=== PATIENT | female | born 1995 | race African-American/Black ===

== ENCOUNTER 2017-07-08 20:29 | Emergency (ER) | payer OTHER ==
--- NOTE | 2017-07-08 21:36 | PDOC ---
Rapid Medical Evaluation Time Seen by Provider: 07/08/17 21:34 Medical Evaluation: Allergies Allergy/AdvReac Type Severity Reaction Status Date / Time shellfish derived Allergy Verified 04/09/16 20:11 I have performed a brief in-person evaluation of this patient. The patient presents with a chief complaint of: n/v/d today. mom has same symptoms Pertinent physical exam findings: none I have ordered the following: labs, UA/hcg The patient will proceed to the ED for further evaluation.
[2017-07-08 21:38] VITALS: BP 108/46; PULSE 108; TEMP 98; BMI 24.5
[2017-07-08 21:59] LABS: BASO % 0.3 % (0-2.0); EOS % 3.2 % (0-4.5); HEMATOCRIT 40.4 % (32.4-45.2); HEMOGLOBIN 12.8 GM/dL (10.7-15.3); LYMPH % 7.1 % (8-40); MCH 21.4 pg (25.7-33.7); MCHC 31.7 g/dl (32.0-36.0); MEAN CELL VOLUME 67.5 fl (80-96); MONO % 6.7 % (3.8-10.2); NEUT % 82.7 % (42.8-82.8); PLATELET COUNT 330 K/MM3 (134-434); RBC 5.99 M/mm3 (3.60-5.2); RDW 14.6 % (11.6-15.6); WHITE BLOOD COUNT 11.9 K/mm3 (4.0-10.0)
[2017-07-08 22:26] LABS: ANION GAP 6 (8-16); BILIRUBIN,TOTAL 0.5 mg/dL (0.2-1.0); BLOOD UREA NITROGEN 13 mg/dL (7-18); CALCIUM 8.8 mg/dL (8.5-10.1); CHLORIDE 109 mmol/L (98-107); CO2 24 mmol/L (21-32); CREATININE 0.7 mg/dL (0.55-1.02); GLUCOSE,RANDOM 98 mg/dL (74-106); LIPASE 97 U/L (73-393); POTASSIUM 3.7 mmol/L (3.5-5.1); SGOT/AST 23 U/L (15-37); SGPT/ALT 19 U/L (12-78); SODIUM 139 mmol/L (136-145); TOT PROT 7.9 g/dl (6.4-8.2)
[2017-07-08 22:27] LABS: ALK PHOS 76 U/L (45-117)
[2017-07-08] MEDS ORDERED: ONDANSETRON *ODT* 4 MG TABLET SL ONE (22:44)
[2017-07-08] MEDS ORDERED: ONDANSETRON *ODT* 4 MG TABLET ONE (23:22)
[2017-07-08 23:43] LABS: HCG,QUALITATIVE URINE NEGATIVE
[2017-07-08 23:45] LABS: URINE APPEARANCE SLCLOUDY; URINE BILIRUBIN NEGATIVE (<2.0 mg/dL); URINE BLOOD 3+ (NEGATIVE); URINE COLOR YELLOW; URINE GLUCOSE (UA) NEGATIVE (NEGATIVE); URINE KETONE TRACE (NEGATIVE); URINE LEUK ESTERASE TRACE (NEGATIVE); URINE NITRITE NEGATIVE (NEGATIVE); URINE PROTEIN 1+ (NEGATIVE); URINE UROBILINOGEN NEGATIVE mg/dL (0.2-1.0)
[2017-07-08 23:46] LABS: EPI CELLS RARE /HPF (FEW)
--- NOTE | 2017-07-09 00:01 | PDOC ---
History of Present Illness <Lisandra Reynolds Milka - Last Filed: 07/09/17 00:11> - General History Source: Patient Exam Limitations: No Limitations - History of Present Illness Initial Comments: 07/09/17 00:32 The patient is a 22 year old female, with no significant past medical history, who presents to the emergency department with, one day of epigastric abdominal discomfort, nausea with vomiting and diarrhea. The patient states her symptoms began this morning after breakfast and she reports two episodes of emesis (non bloody, non bilious) and 3 episodes of diarrhea (denies melena or hematochezia) . The patient states her mother is sick at home with the exact same symptoms. She denies recent fevers, chills, headache or dizziness. She denies recent dysuria, frequency, urgency or hematuria. She denies recent chest pain or shortness of breath. Allergies: shellfish derived <Ryland España - Last Filed: 07/09/17 00:36> - General Chief Complaint: Vomiting/Diarrhea Stated Complaint: PAIN/VOMITING Time Seen by Provider: 07/08/17 21:34 Past History - Past Medical History COPD: No - Immunization History Immunization Up to Date: Yes - Suicide/Smoking/Psychosocial Hx Smoking History: Never smoked Have you smoked in the past 12 months: No Hx Alcohol Use: No Drug/Substance Use Hx: No Substance Use Type: None <Tavon Reynoldszoya Jarquin - Last Filed: 07/09/17 00:11> <Ryland España - Last Filed: 07/09/17 00:36> - Past Medical History Allergies/Adverse Reactions: Allergies Allergy/AdvReac Type Severity Reaction Status Date / Time shellfish derived Allergy Verified 07/08/17 21:34 Home Medications: Ambulatory Orders Ondansetron [Zofran Odt -] 4 mg SL TID PRN #21 od.tablet 07/09/17 Review of Systems - Review of Systems Comments:: 07/09/17 00:34 CONSTITUTIONAL: Absent: fever, no chills, no fatigue EYES: Absent: visual changes ENT: Absent: ear pain, no sore throat CARDIOVASCULAR: Absent: chest pain, no palpitations RESPIRATORY: Absent: cough, no SOB GI: Present: +Epigastric abdominal discomfort. +Nausea. +Vomiting. +Diarrhea. Absent: no constipation, GENITOURINARY: Absent: dysuria, no frequency, no hematuria MUSKULOSKELETAL: Absent: back pain, no arthralgia, no myalgia SKIN: Absent: rash NEURO: Absent: headache <Ryland España - Last Filed: 07/09/17 00:36> *Physical Exam - Vital Signs Last Vital Signs Temp Pulse Resp BP Pulse Ox 98 F 108 H 20 108/46 100 07/08/17 21:37 07/08/17 21:37 07/08/17 21:37 07/08/17 21:37 07/08/17 21:37 <Lisandra Reynolds - Last Filed: 07/09/17 00:11> - Vital Signs Last Vital Signs Temp Pulse Resp BP Pulse Ox 98 F 108 H 20 108/46 100 07/08/17 21:37 07/08/17 21:37 07/08/17 21:37 07/08/17 21:37 07/08/17 21:37 - Physical Exam Comments: 07/09/17 00:35 GENERAL: +Mild cognitive deficits. Well-appearing, well-nourished. No apparent distress. HEENT: Normocephalic, atraumatic. PERRL, EOM intact. CARDIOVASCULAR: Normal S1, S2. Regular rate and rhythm. PULMONARY: Clear to auscultation bilaterally. ABDOMEN: +Epigastric tenderness. No rebound or guarding. Soft, non-distended. EXTREMITIES: Normal ROM in all four extremities. No gross deformities. SKIN: Warm, dry. No rash NEUROLOGICAL: No focal neurological deficits. <Ryland España - Last Filed: 07/09/17 00:36> ED Treatment Course - LABORATORY CBC & Chemistry Diagram: 07/08/17 21:46 07/08/17 21:46 - ADDITIONAL ORDERS Additional order review: Laboratory Results 07/08/17 07/08/17 07/08/17 23:20 23:20 21:46 Sodium 139 Potassium 3.7 Chloride 109 H Carbon Dioxide 24 Anion Gap 6 L BUN 13 Creatinine 0.7 Creat Clearance w eGFR > 60 Random Glucose 98 Calcium 8.8 Total Bilirubin 0.5 D AST 23 ALT 19 Alkaline Phosphatase 76 Total Protein 7.9 Albumin 4.0 Lipase 97 Serum , Qual Negative Urine Color Yellow Urine Appearance Slcloudy Urine pH 5.0 Ur Specific Gervais 1.035 Urine Protein 1+ H Urine Glucose (UA) Negative Urine Ketones Trace H Urine Blood 3+ H Urine Nitrite Negative Urine Bilirubin Negative Urine Urobilinogen Negative Ur Leukocyte Esterase Trace Urine WBC (Auto) None Urine RBC (Auto) 16 Ur Epithelial Cells Rare Urine HCG, Qual Negative 07/08/17 21:46 RBC 5.99 H MCV 67.5 L MCHC 31.7 L RDW 14.6 MPV 8.0 Neutrophils % 82.7 Lymphocytes % 7.1 L D Monocytes % 6.7 Eosinophils % 3.2 Basophils % 0.3 - Medications Given in the ED: ED Medications Discontinued Medications Generic Name Dose Route Start Last Admin Trade Name Freq PRN Reason Stop Dose Admin Ondansetron HCl 8 mg 07/08/17 22:44 07/08/17 23:33 Zofran Odt - SL 07/08/17 22:45 8 mg ONCE ONE Administration <Lisandra Reynolds - Last Filed: 07/09/17 00:11> - LABORATORY CBC & Chemistry Diagram: 07/08/17 21:46 07/08/17 21:46 - ADDITIONAL ORDERS Additional order review: Laboratory Results 07/08/17 07/08/17 07/08/17 23:20 23:20 21:46 Sodium 139 Potassium 3.7 Chloride 109 H Carbon Dioxide 24 Anion Gap 6 L BUN 13 Creatinine 0.7 Creat Clearance w eGFR > 60 Random Glucose 98 Calcium 8.8 Total Bilirubin 0.5 D AST 23 ALT 19 Alkaline Phosphatase 76 Total Protein 7.9 Albumin 4.0 Lipase 97 Serum , Qual Negative Urine Color Yellow Urine Appearance Slcloudy Urine pH 5.0 Ur Specific Gervais 1.035 Urine Protein 1+ H Urine Glucose (UA) Negative Urine Ketones Trace H Urine Blood 3+ H Urine Nitrite Negative Urine Bilirubin Negative Urine Urobilinogen Negative Ur Leukocyte Esterase Trace Urine WBC (Auto) None Urine RBC (Auto) 16 Ur Epithelial Cells Rare Urine HCG, Qual Negative 07/08/17 21:46 RBC 5.99 H MCV 67.5 L MCHC 31.7 L RDW 14.6 MPV 8.0 Neutrophils % 82.7 Lymphocytes % 7.1 L D Monocytes % 6.7 Eosinophils % 3.2 Basophils % 0.3 - Medications Given in the ED: ED Medications Discontinued Medications Generic Name Dose Route Start Last Admin Trade Name Freq PRN Reason Stop Dose Admin Ondansetron HCl 8 mg 07/08/17 22:44 07/08/17 23:33 Zofran Odt - SL 07/08/17 22:45 8 mg ONCE ONE Administration <Ryland España - Last Filed: 07/09/17 00:36> *DC/Admit/Observation/Transfer <Lisandra Reynolds - Last Filed: 07/09/17 00:11> - Attestations Scribe Attestion: 07/09/17 00:36 Documentation prepared by Ryland España, acting as medical technologist chemistry for Lisandra Reynolds MD. <Ryland España - Last Filed: 07/09/17 00:36> Diagnosis at time of Disposition: Vomiting Qualifiers: Vomiting type: unspecified Vomiting Intractability: non-intractable Nausea presence: unspecified Qualified Code(s): R11.10 - Vomiting, unspecified Diarrhea Qualifiers: Diarrhea type: unspecified type Qualified Code(s): R19.7 - Diarrhea, unspecified - Discharge Dispostion Disposition: HOME Condition at time of disposition: Stable - Prescriptions Prescriptions: Ondansetron [Zofran Odt -] 4 mg SL TID PRN #21 od.tablet PRN Reason: Nausea And/Or Vomiting - Referrals Referrals: Bonita Lutz MD [Primary Care Provider] - - Patient Instructions Printed Discharge Instructions: DI for Viral Gastroenteritis -- Adult Additional Instructions: please greens picker your medication at your pharmacy please return for any worsening symptoms - Post Discharge Activity
== END 2017-07-09 00:29 | disposition home or self-care (01) ==
LOC: JER 20:29
DX: A08.4 Viral intestinal infection, unspecified (principal); B97.89 Other viral agents as the cause of diseases classified elsewhere
CPT/HCPCS: 36415; 80053; 81003; 81015; 83690; 84703; 85025; 87086; 99281-25; Q0162

== ENCOUNTER 2017-09-23 12:03 | Emergency (ER) | payer OTHER ==
[2017-09-23 12:12] VITALS: BP 103/74; PULSE 100; TEMP 98.1; BMI 22.6
[2017-09-23] MEDS ORDERED: ALBUTEROL SO4 2.5/IPRATROPIUM 0.5 INH SOL 3 ML VIAL.NEB. NEB ONE ×2 (13:02→13:08)
[2017-09-23] MEDS ORDERED: IBUPROFEN 400 MG TABLET (FP) PO ONE ×2 (13:02→13:08)
--- NOTE | 2017-09-23 13:12 | PDOC ---
History of Present Illness - General Chief Complaint: Cold Symptoms Stated Complaint: COUGH, CONGESTED Time Seen by Provider: 09/23/17 12:16 History Source: Patient Exam Limitations: No Limitations - History of Present Illness Initial Comments: 09/23/17 14:22 Pt. is a 22y/o F with no PMH who presents to the ED c/o sore throat and shortness of breath/chest tightness since this morning. Pt states that she has been drinking warm tea and that makes her symptoms feel better. Did not take any tylenol or motrin. Denies fevers, chills, chest pain, palpitations, ear ache , n/v/d. Past History - Travel Traveled outside of the country in the last 30 days: No Close contact w/someone who was outside of country & ill: No - Past Medical History Allergies/Adverse Reactions: Allergies Allergy/AdvReac Type Severity Reaction Status Date / Time shellfish derived Allergy Verified 09/23/17 12:09 shrimp Allergy Verified 09/23/17 12:09 Home Medications: Ambulatory Orders Albuterol Sulfate Inhaler - [Ventolin HFA Inhaler -] 1 - 2 inh PO Q4H #1 inhaler 09/23/17 Ibuprofen 800 mg PO TID #30 tablet 09/23/17 COPD: No DVT: No - Immunization History Immunization Up to Date: Yes - Suicide/Smoking/Psychosocial Hx Smoking History: Never smoked Have you smoked in the past 12 months: No Information on smoking cessation initiated: No Hx Alcohol Use: No Drug/Substance Use Hx: No Substance Use Type: None Review of Systems - Review of Systems Able to Perform ROS?: Yes Comments:: 09/23/17 14:16 CONSTITUTIONAL: Absent: fever, chills, diaphoresis, generalized weakness, malaise, loss of appetite HEENT: Present: sore throat, congestion Absent: rhinorrhea, nasal congestion, throat pain, throat swelling, difficulty swallowing, mouth swelling, ear pain, eye pain , visual Changes CARDIOVASCULAR: Absent: chest pain, loss of consciousness, palpitations, irregular heart rate, peripheral edema RESPIRATORY: Present: cough, shortness of breath Absent: cough, shortness of breath, dyspnea with exertion, orthopnea, wheezing, stridor, hemoptysis SKIN: NEUROLOGIC: Absent: headache, focal weakness or paresthesias, dizziness, unsteady gait, seizure, mental status changes, bladder or bowel incontinence Is the patient limited Mauritian proficient: No *Physical Exam - Vital Signs Last Vital Signs Temp Pulse Resp BP Pulse Ox 98.1 F 100 H 18 103/74 100 09/23/17 12:09 09/23/17 12:09 09/23/17 12:09 09/23/17 12:09 09/23/17 12:09 - Physical Exam Comments: 09/23/17 14:21 GENERAL: Well developed, well nourished. Awake and alert. No acute distress. HEENT: Normocephalic, atraumatic. PERRLA, EOMI. No conjunctival pallor. Sclera are non- icteric. Moist mucous membranes. Oropharynx with mild posterior erythema. No tonsilar edema, uvula is midline. NECK: Supple. Full ROM. No JVD. Carotid pulses 2+ and symmetric, without bruits. No thyromegaly. No lymphadenopathy. CARDIOVASCULAR: Regular rate and rhythm. No murmurs, rubs, or gallops. Distal pulses are 2+ and symmetric. PULMONARY: No evidence of respiratory distress. Lungs clear to auscultation bilaterally. No wheezing, rales or rhonchi. SKIN: Warm and dry. Normal capillary refill. No rashes. No jaundice. NEUROLOGICAL: Alert, awake, appropriate. Cranial nerves 2-12 intact. No deficits to light touch and temperature in face, upper extremities and lower extremities. No motor deficits in the in face, upper extremities and lower extremities. Normoreflexic in the upper and lower extremities. Normal speech. Toes are down- going bilaterally. Gait is normal without ataxia. ED Treatment Course - Medications Given in the ED: ED Medications Discontinued Medications Generic Name Dose Route Start Last Admin Trade Name Freq PRN Reason Stop Dose Admin Albuterol/Ipratropium 1 amp 09/23/17 13:02 09/23/17 13:11 Duoneb - NEB 09/23/17 13:03 1 amp ONCE ONE Administration Ibuprofen 800 mg 09/23/17 13:02 09/23/17 13:11 Motrin - PO 09/23/17 13:03 800 mg ONCE ONE Administration Medical Decision Making - Medical Decision Making 09/23/17 14:24 Pt. is a 22 y/o F who presents with one day of sore throat, chest tightness, productive cough and congestion. Rapid strep is negative at this time. VSS, afebrile. Pt. states she feels better after motrin and a duoneb. Most likely an upper respiratory infection. Will d/c home at this time. Supportive treatment given. Pt understands all dc instructions and all questions were answered *DC/Admit/Observation/Transfer Diagnosis at time of Disposition: Upper respiratory infection Qualifiers: URI type: unspecified URI Qualified Code(s): J06.9 - Acute upper respiratory infection, unspecified - Discharge Dispostion Disposition: HOME Condition at time of disposition: Stable Decision to Admit order: No - Prescriptions Prescriptions: Albuterol Sulfate Inhaler - [Ventolin HFA Inhaler -] 1 - 2 inh PO Q4H #1 inhaler Ibuprofen 800 mg PO TID #30 tablet - Referrals Referrals: Lissa Alfaro MD [Primary Care Provider] - - Patient Instructions Printed Discharge Instructions: DI for Viral Upper Respiratory Infection -- Adult Additional Instructions: You have cold-like symptoms. Her strep test was negative today. You may use the inhaler every 4 hours as needed for shortness of breath. Please take Motrin 800 mg every 8 hours to help with her pain. Please drink plenty of fluids, warm tea may help with her symptoms. He may use throat lozenges. Please follow up with her primary care doctor this week. Return to the emergency department if you have fevers, chills, difficulty breathing, shortness of breath, or have any changes in your symptoms. - Post Discharge Activity Forms/Work/School Notes: Back to School
== END 2017-09-23 14:14 | disposition home or self-care (01) ==
LOC: JERFT 12:03
PROC: 3E0F7GC Introduction of Other Therapeutic Substance into Respiratory Tract, Via Natural or Artificial Opening (ICD-10-PCS; principal; 2017-09-23)
DX: J06.9 Acute upper respiratory infection, unspecified (principal)
CPT/HCPCS: 87070; 87430; 99281-25; J7620

== ENCOUNTER 2018-09-01 09:51 | Emergency (ER) | payer OTHER ==
[2018-09-01 10:02] VITALS: BP 123/77; PULSE 92; TEMP 98; BMI 30.2
--- NOTE | 2018-09-01 11:39 | PDOC ---
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 Presents for evaluation of right fifth finger pain and left-sided rib pain after falling off a swing yesterday. The patient's caregiver states she fell off a swing from a seated height there was no significant altitude gained while being on the swing. The patient had just sat down. There was no head injury. The injury happened yesterday. Past History - Past Medical History Allergies/Adverse Reactions: Allergies Allergy/AdvReac Type Severity Reaction Status Date / Time shellfish derived Allergy Verified 09/01/18 09:55 shrimp Allergy Verified 09/01/18 09:55 Home Medications: Ambulatory Orders NK [No Known Home Medication] 09/01/18 COPD: No DVT: No - Immunization History Immunization Up to Date: Yes - Suicide/Smoking/Psychosocial Hx Smoking History: Never smoked Have you smoked in the past 12 months: No Information on smoking cessation initiated: No Hx Alcohol Use: No Drug/Substance Use Hx: No Substance Use Type: None Review of Systems - Review of Systems Musculoskeletal: Yes: See HPI, Joint Pain *Physical Exam - Vital Signs Last Vital Signs Temp Pulse Resp BP Pulse Ox 98 F 92 H 17 123/77 100 09/01/18 09:53 09/01/18 09:53 09/01/18 09:53 09/01/18 09:53 09/01/18 09:53 - Physical Exam Comments: 09/01/18 11:37 HEAD: NC/AT EYES: Conjuntiva clear Ears: Canals and TM's normal NOSE: No d/c THROAT: Moist mucous membrances, oral pharanx clear, uvula midline NECK: Supple without adenopathy CARDIAC: S1 S2 LUNGS: CTA Full and Equal breath sounds; L sided rib tendernes about ribs 8 and 9 ABDOMEN: Soft NT ND MS: Full ROM in all joints without edema; L 5th finger no swelling, full ROM FDS and FDP work independently NEUROLOGIC: No gross sensory or motor deficits, NVID SKIN: Normal color and temperature no lesions or rashes ED Treatment Course - RADIOLOGY Radiology Studies Ordered: Category Date Time Status CHEST - PA [RAD] Stat Radiology 09/01/18 11:32 Ordered FINGER(S) RIGHT [RAD] Stat Radiology 09/01/18 11:32 Ordered RIBS-LEFT SIDE [RAD] Stat Radiology 09/01/18 11:32 Ordered Medical Decision Making - Medical Decision Making 09/01/18 12:01 X-rays reviewed, no acute fx's or pneumothorax. Finger sprain and rib contusion , f/u with PCP and hand discussed plan with customer care team coach. 09/01/18 12:06 Finger palak taped NVID post taping *DC/Admit/Observation/Transfer Diagnosis at time of Disposition: Sprain of finger, right, Contusion of rib on left side - Discharge Dispostion Disposition: HOME Condition at time of disposition: Stable Decision to Admit order: No - Referrals Referrals: Hamilton Lewis MD [Primary Care Provider] - Fercho Adam MD [Staff Physician] - - Patient Instructions Printed Discharge Instructions: Finger Sprain, [place] Deformity of Finger , DI for Finger Sprain, DI for Rib Contusion Additional Instructions: Tylenol as directed for pain. Return to the emergency room for worsening symptoms. Follow-up with hand surgery for further evaluation and treatment options of your finger sprain and with your primary care physician for further evaluation and treatment options of your rib pain. Follow-up should be made without fail for the next 1-2 days - Post Discharge Activity
== END 2018-09-01 12:15 | disposition home or self-care (01) ==
LOC: JERFT 09:51
DX: S20.212A Contusion of left front wall of thorax, initial encounter (principal); S63.636A Sprain of interphalangeal joint of right little finger, initial encounter; W09.1XXA Fall from playground swing, initial encounter; Y93.89 Activity, other specified; Y92.830 Public park as the place of occurrence of the external cause; Y99.8 Other external cause status; R62.50 Unspecified lack of expected normal physiological development in childhood
CPT/HCPCS: 71045-TC-FY; 71101-TC-LT-FY; 73140-TC-RT-FY; 99281-25